=== PATIENT | male | born 1960 | race Caucasian/White ===

== ENCOUNTER → 2017-01-24 | Outpatient (CLI) | payer OTHER ==
[~2017-01-24] MED LIST: ASCO10004 PO; CHOL500014 PO; FEXO180T72 PO; NIAC10002 PO; RED600CA2 PO; TAMS-11 PO; UBID1CAP24 PO
== END | disposition home or self-care (01) ==
LOC: STAR 12:55
PROVIDERS: ATTEND Surgery
DX: Z02.9 Encounter for administrative examinations, unspecified (principal)

== ENCOUNTER 2017-01-31 07:39 | Day surgery (SDC) | payer OTHER ==
[~2017-01-31] VITALS: Ht 175.3 cm; Wt 82.0 kg
[~2017-01-31 07:39] MED LIST changes: +BUPIVACAINE/PF-EPI 0.5% 1:200K ONE
[2017-01-31] MEDS ORDERED: LACTATED RINGERS 1,000 ML IV SCH (08:08)
[2017-01-31 08:13] VITALS: BP 128/80
[2017-01-31] MEDS ORDERED: FENTANYL PF 250 MCG/5ML ONE (10:31)
[2017-01-31] MEDS ORDERED: MIDAZOLAM 1 MG/ML, 2ML ONE (10:31)
[2017-01-31] MEDS ORDERED: ONDANSETRON 2MG/ML, 2ML IVPush PRN (11:00)
[2017-01-31] MEDS ORDERED: ACETAMINOPHEN 325 MG TABLET PO PRN (11:00)
[2017-01-31] MEDS ORDERED: METOPROLOL 1 MG/ML, 5ML IV PRN (11:00)
[2017-01-31] MEDS ORDERED: ALBUTEROL SULFATE 2.5 MG/3 ML NPPB PRN (11:00)
[2017-01-31] MEDS ORDERED: OXYcodone 5 MG/5 ML ORAL.SOL UDC PO PRN (11:00)
[2017-01-31] MEDS ORDERED: LABETALOL 5MG/ML, 20ML IV PRN (11:00)
[2017-01-31] MEDS ORDERED: hydrALAzine 20 MG/ML, 1ML IV PRN (11:00)
[2017-01-31] MEDS ORDERED: EPHEDRINE 50 MG/ML, 1ML IVPush PRN (11:00)
[2017-01-31] MEDS ORDERED: MEPERIDINE/PF 25MG/0.5ML IVPush PRN (11:00)
[2017-01-31] MEDS ORDERED: FENTANYL PF 100 MCG/2ML ONE (12:53)
[2017-01-31] MEDS ORDERED: OXYcodone 5 MG/5 ML ORAL.SOL UDC ONE (12:53)
[2017-01-31] MEDS ORDERED: HYDROmorphone 1 MG/ML, 1ML ONE (12:53)
[2017-01-31] MEDS: HYDROmorphone 1 MG/ML, 1ML IV PRN ×2 (12:56→13:06)
[2017-01-31] MEDS: FENTANYL PF 100 MCG/2ML IV PRN ×2 (12:58→13:23)
[2017-01-31] MEDS ORDERED: ONDANSETRON 2MG/ML, 2ML ONE (17:01)
[2017-01-31] MEDS ORDERED: ROCURONIUM 10 MG/ML ONE (17:01)
[2017-01-31] MEDS ORDERED: NEOSTIGMINE 1 MG/ML, 10ML ONE (17:01)
[2017-01-31] MEDS ORDERED: DEXAMETHASONE 4 MG/ML, 1ML ONE (17:01)
[2017-01-31] MEDS ORDERED: CEFAZOLIN 1,000 MG ONE (17:01)
[2017-01-31] MEDS ORDERED: GLYCOPYRROLATE 0.2MG/1ML ONE (17:01)
[2017-01-31] MEDS ORDERED: KETOROLAC 30 MG/1 ML ONE (17:01)
[2017-01-31] MEDS ORDERED: PROPOFOL 10 MG/ML, 20ML ONE (17:01)
== END 2017-01-31 15:30 | disposition home or self-care (01) ==
LOC: OUT 07:39
PROVIDERS: ATTEND Surgery
DX: K40.20 Bilateral inguinal hernia, without obstruction or gangrene, not specified as recurrent (principal); D17.6 Benign lipomatous neoplasm of spermatic cord; N40.0 Benign prostatic hyperplasia without lower urinary tract symptoms; E78.5 Hyperlipidemia, unspecified; Z72.89 Other problems related to lifestyle; Z98.890 Other specified postprocedural states
CPT/HCPCS: 49650; C1781; J0690; J1100; J1170; J1885; J2250; J2405; J2704; J2710; J3010; J7120; S2900; J3490

== ENCOUNTER → 2018-05-20 | Outpatient (CLI) | payer OTHER ==
[~2018-05-20] MED LIST changes: -BUPIVACAINE/PF-EPI 0.5% 1:200K ONE; -CHOL500014 PO; +CHOL500045 PO; +OMNIPAQUE 350 MG/ML, 100ML BOTTLE ONE; -UBID1CAP24 PO; +UBID1CAP43 PO
== END | disposition home or self-care (01) ==
LOC: CFH 08:23
PROVIDERS: ATTEND Internal Medicine Gastroenterology
DX: R10.13 Epigastric pain (principal); D50.9 Iron deficiency anemia, unspecified; K44.9 Diaphragmatic hernia without obstruction or gangrene; Z79.1 Long term (current) use of non-steroidal anti-inflammatories (NSAID)
CPT/HCPCS: 74160; Q9967